=== PATIENT | female | born 2000 ===

== ENCOUNTER 2018-12-14 17:18 | Emergency (ER) | payer OTHER ==
[~2018-12-14] VITALS: Ht 162.6 cm; Wt 72.7 kg
[2018-12-14] MEDS ORDERED: UNK PAIN MED PO (17:27)
[2018-12-14 17:38] VITALS: BP 119/59
[2018-12-14] MEDS ORDERED: FAMOTIDINE 20 MG TABLET PO ONE (18:00)
== END 2018-12-14 18:40 | disposition left against medical advice (07) ==
LOC: EMS 17:21
DX: R55 Syncope and collapse (principal); R10.13 Epigastric pain
CPT/HCPCS: 93005